=== PATIENT | female | born 1950 | race Caucasian/White ===

== ENCOUNTER → 2016-06-22 | Outpatient (CLI) | payer MEDICARE, OTHER ==
[~2016-06-22] MED LIST: ALLEGRA-D1 TAB.SR1; ALPRAZOLAM; ANACIN TABLET1 TAB; CALCIUM 500 + D1 TAB; GARLIC; MAGNESIUM; MULTI-VITAMIN1 TAB; PAXIL; PRILOSEC; VIT C; VIT E
--- NOTE | ~2016-06-22 | CT95 ---
[facility] A Service of [facility] & [facility] RADIOLOGY TEXT RESULTS PATIENT: BRAULIO DIOR LOCATION: [facility] : 52 UNIT #: [id number] AGE: [address]: Alexis York Jr, MD SEX: F ORDER DR: [id number] [place] [id number] MR#: [id number] Acc #: [id number] NAME: BRAULIO DIOR : 1950 SEX: F STUDY DATE/TIME: 06/22/2016 13:49 UNIT: [facility] ROOM: STUDY DESCRIPTION: CT Lower Ext Rt Wo Cont Attending Physician: Alexis York Jr., M.D. Referring Physician: Alexis York Jr., M.D. Ordering Physician: Alexis York Jr., M.D. Primary Care Physician: Kareem Waddell M.D. MEDICAL IMAGING REPORT This report is preliminary unless electronic signature is present. EXAM CT right knee without contrast 06/22/2016 HISTORY 66-year-old female with right knee pain status post fall in April 2015. Possible mass along the lateral aspect of the knee. No prior right knee surgery. COMPARISON None. TECHNIQUE Helical scan performed through the right knee without IV contrast. Coronal and sagittal reformatted images. This CT exam was performed with one or more of the following radiation dose reduction techniques: automatic exposure control, adjustment of mA and/or kV according to patient size, and iterative reconstruction. FINDINGS There is a subtle area of depression involving the central and posterior articular surface of the lateral tibial plateau. This is depressed less than 2 mm and concerning for an indeterminate age impaction fracture or subchondral insufficiency fracture. This involves approximately 25-50% of the articular surface. Medial tibial plateau is intact. The distal femur appears intact. There are advanced degenerative changes in the lateral compartment and mild to moderate degenerative changes in the medial compartment. [id number] degenerative change of patellofemoral joint. There is a small to moderate joint effusion. There is a popliteal cyst measuring approximately 4.4 cm in length. An external marker was placed over the lateral aspect of the knee at the level of the fibular head in the area of palpable concern. There is some minimally prominent soft STS. [facility] A Service of [facility] RADIOLOGY TEXT RESULTS PATIENT: BRAULIO DIOR LOCATION: [facility] : 52 UNIT #: [id number] AGE: [address]: Alexis York Jr, MD SEX: F ORDER DR: tissue density adjacent to the lateral aspect of the fibular head without evidence of a discrete mass or fluid collection. This is nonspecific and should be further characterized with MRI. MRI could also better characterize the suspected minimally depressed lateral tibial plateau fracture. IMPRESSION 1. Indeterminate age, minimally depressed fracture involving the central and posterior weightbearing surface of lateral tibial plateau. This could be secondary to previous impaction injury versus subchondral insufficiency fracture. Further characterization with MRI of the right knee is suggested. 2. Minimal subcutaneous soft tissue prominence of the marked area of palpable concern along the lateral aspect of the knee at the level of the fibular head. No definite discrete mass or fluid collection. This is a nonspecific finding and further characterization with MRI of the right knee is again suggested. 3. 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 4. Small to moderate joint effusion with a 4.4 cm popliteal cyst. Dictated by... Darek Batista M.D. THIS IS AN ELECTRONICALLY VERIFIED REPORT Darek Batista M.D. at 06/23/2016 4:43 PM Y[place] TD: 06/23/2016 08:14 JOB #: [id number] MEDICAL IMAGING REPORT Page 1 of 1
== END | disposition home or self-care (01) ==
LOC: SCT 12:47
DX: R22.41 Localized swelling, mass and lump, right lower limb (principal); M19.071 Primary osteoarthritis, right ankle and foot; M25.461 Effusion, right knee
CPT/HCPCS: 73700